=== PATIENT | male | born 1980 ===

== ENCOUNTER 2023-05-08 12:13 | Day surgery (SDC) | payer BC ==
[~2023-05-08] VITALS: Ht 175.3 cm; Wt 67.5 kg
== END 2023-05-08 15:22 | disposition home or self-care (01) ==
LOC: ORSCSDS 12:13
PROVIDERS: Internal Medicine Gastroenterology
PROC: 0DBK8ZX Excision of Ascending Colon, Via Natural or Artificial Opening Endoscopic, Diagnostic (ICD-10-PCS; principal; 2023-05-08 13:15)
PROC: 0DB98ZX Excision of Duodenum, Via Natural or Artificial Opening Endoscopic, Diagnostic (ICD-10-PCS; principal; 2023-05-08 13:15)
PROC: 0DB78ZX Excision of Stomach, Pylorus, Via Natural or Artificial Opening Endoscopic, Diagnostic (ICD-10-PCS; principal; 2023-05-08 13:15)
DX: R10.84 Generalized abdominal pain (principal); R14.0 Abdominal distension (gaseous); K31.7 Polyp of stomach and duodenum; D12.2 Benign neoplasm of ascending colon; K59.00 Constipation, unspecified; K64.4 Residual hemorrhoidal skin tags
CPT/HCPCS: 88305; 88342; J2704; J7120